=== PATIENT | male | born 1935 | race Caucasian/White ===

== ENCOUNTER 2017-12-18 10:50 | Emergency (ER) | payer MEDICARE, BC ==
[2017-12-18 12:14] VITALS: BP 155/82
--- NOTE | 2017-12-18 14:00 | EDM.PDOC ---
ED HPI GENERAL MEDICAL PROBLEM - General Chief Complaint: General Stated Complaint: FELL & HIT RT SIDE/HURT RIBS Time Seen by Provider: 12/18/17 11:50 Source of Information: Reports: Patient History Limitations: Reports: No Limitations - History of Present Illness INITIAL COMMENTS - FREE TEXT/NARRATIVE: pt fell on stump and hit his rt lower rib cage. He has pain when he moves a certain way and takes a deep breath. Onset: Other (pt fell 2 days ago. ) Duration: Hour(s): Location: Reports: Chest Associated Symptoms: Reports: Chest Pain RIGHT SIDE Pain Score (Numeric/FACES): 4 - Related Data Allergies Allergy/AdvReac Type Severity Reaction Status Date / Time amlodipine Allergy Dizziness Verified 12/18/17 12:08 ibuprofen Allergy Swelling Verified 12/18/17 12:08 indomethacin [From Indocin] Allergy Rash Verified 12/18/17 12:08 Penicillins Allergy Rash Verified 12/18/17 12:08 Home Meds: Home Meds Aspirin 81 mg PO DAILY 05/13/16 [History] Hydrocodone/Acetaminophen [Hydrocodon-Acetaminophen 5-500] 05/13/16 [History] Lisinopril/Hydrochlorothiazide [Lisinopril-Hctz 20-25 mg Tab] 2 tab PO 05/13/16 [History] Metoprolol Succinate [Toprol XL 100mg] 100 mg PO DAILY 05/13/16 [History] Simvastatin [Zocor] 40 mg PO 05/13/16 [History] Warfarin Sodium [Coumadin] 10 mg PO 05/13/16 [History] Past Medical History HEENT History: Reports: Cataract, Hard of Hearing Cardiovascular History: Reports: Arrhythmia, High Cholesterol, Hypertension Respiratory History: Reports: Asthma, COPD, SOB Musculoskeletal History: Reports: Arthritis Neurological History: Reports: Headaches, Chronic - Infectious Disease History Infectious Disease History: Reports: Measles, Mumps - Past Surgical History HEENT Surgical History: Reports: Other (See Below) Cardiovascular Surgical History: Reports: Coronary Artery Bypass, Coronary Artery Stent Social & Family History - Tobacco Use Smoking Status *Q: Never Smoker - Caffeine Use Caffeine Use: Reports: Coffee - Recreational Drug Use Recreational Drug Use: No ED ROS GENERAL - Review of Systems Review Of Systems: See Below Constitutional: Reports: No Symptoms HEENT: Reports: No Symptoms Respiratory: Reports: Other (pt has pain in his rt rib cage with movement and deep breathing since the fall. ) ED EXAM, GENERAL - Physical Exam Exam: See Below Free Text/Narrative:: pt fell and hit his rt ant rib cage. He hurts with deep breathing and movement. Exam Limited By: No Limitations General Appearance: Alert, Mild Distress Ears: Normal TMs Nose: Normal Inspection Throat/Mouth: Normal Inspection Head: Atraumatic Neck: Normal Inspection Respiratory/Chest: No Respiratory Distress Cardiovascular: Regular Rate, Rhythm GI/Abdominal: Soft, Non-Tender (Male) Exam: Deferred Rectal (Males) Exam: Deferred Back Exam: Normal Inspection Extremities: Normal Inspection Neurological: Alert, Oriented, Normal Cognition Course - Vital Signs Last Recorded V/S: Last Vital Signs Temp 36.2 C 12/18/17 12:12 Pulse 72 12/18/17 12:12 Resp 16 12/18/17 12:12 BP 155/82 H 12/18/17 12:12 Pulse Ox 98 12/18/17 12:12 - Orders/Labs/Meds Labs: Laboratory Tests 12/18/17 12/18/17 12/18/17 Range/Units 12:59 13:05 13:05 WBC 7.9 (4.5-11.0) K/uL RBC 4.11 L (4.30-5.90) M/uL Hgb 13.0 (12.0-15.0) g/dL Hct 38.9 L (40.0-54.0) % MCV 95 (80-98) fL MCH 32 H (27-31) pg MCHC 33 (32-36) % Plt Count 137 L (150-400) K/uL Neut % (Auto) 59 (36-66) % Lymph % (Auto) 29 (24-44) % [place] % (Auto) 11 H (2-6) % Eos % (Auto) 1 L (2-4) % Baso % (Auto) 0 (0-1) % PT 41.5 H (9.5-12.0) sec INR 3.67 H (0.80-1.20) Sodium 141 (140-148) mmol/L Potassium 3.7 (3.6-5.2) mmol/L Chloride 104 (100-108) mmol/L Carbon Dioxide 29 (21-32) mmol/L Anion Gap 8.4 (5.0-14.0) mmol/L BUN 32 H D (7-18) mg/dL Creatinine 1.1 (0.8-1.3) mg/dL Est Cr Clr Drug Dosing 51.82 mL/min Estimated GFR (MDRD) > 60 (>60) Glucose 102 (74-106) mg/dL Calcium 9.0 (8.5-10.1) mg/dL Total Bilirubin 0.8 (0.2-1.0) mg/dL AST 23 (15-37) U/L ALT 19 (12-78) U/L Alkaline Phosphatase 55 (46-116) U/L Total Protein 7.2 (6.4-8.2) g/dL Albumin 4.0 (3.4-5.0) g/dL Globulin 3.2 (2.3-3.5) g/dL Albumin/Globulin Ratio 1.3 (1.2-2.2) - Re-Assessments/Exams Free Text/Narrative Re-Assessment/Exam: 12/18/17 14:13 rib detail shows a possible undisplaced fracture in the 11 th rib lateral anterior. He has no evidence of a pneumothorax. Departure - Departure Time of Disposition: 13:58 Disposition: Home, Self-Care 01 Condition: Fair Clinical Impression: Rib fracture, COPD (chronic obstructive pulmonary disease) - Discharge Information Instructions: Chronic Obstructive Pulmonary Disease, [id number], Rib Fracture , [id number] Referrals: Jah King MD [Primary Care Provider] - Forms: ED Department Discharge Care Plan Goals: encourage deep breathing, use hydrocodone which he has for pain control, flexeril 5mg hs for muscle relaxation
--- NOTE | 2017-12-18 14:07 | CR ---
Ribs 2V w Chest Rt INDICATION: right chest pain COMPARISON: None FINDINGS: 3 views. Cardiomegaly. Sternotomy. Bilateral pleural thickening. Old fracture left fifth rib laterally. Age-indeterminate fracture posterolateral right 11th rib. No definite pleural effusio n or pneumothorax. No focal infiltrates.
== END 2017-12-18 14:14 | disposition home or self-care (01) ==
LOC: JP.ED 10:50
DX: S22.31XA Fracture of one rib, right side, initial encounter for closed fracture (principal); J44.9 Chronic obstructive pulmonary disease, unspecified; I10 Essential (primary) hypertension; Z88.0 Allergy status to penicillin; Z88.6 Allergy status to analgesic agent; Z88.8 Allergy status to other drugs, medicaments and biological substances; Z79.82 Long term (current) use of aspirin; Z79.899 Other long term (current) drug therapy; W18.00XA Striking against unspecified object with subsequent fall, initial encounter
CPT/HCPCS: 36415; 71101-26-RT; 71101-RT; 80053; 85025; 85610; 99284

== ENCOUNTER 2018-11-02 14:07 | Emergency (ER) | payer BC, MEDICARE ==
[2018-11-02] MEDS ORDERED: fentaNYL 100 MCG/2 ML SDV IVPUSH ONE (14:31)
[2018-11-02] MEDS ORDERED: Sodium Chloride 0.9% 80 ML IV ONE (14:50)
[2018-11-02] MEDS ORDERED: Sodium Chloride 0.9% 10 ML Syringe FLUSH ONE (14:50)
[2018-11-02] MEDS ORDERED: Iopamidol 612 MG/ML 100 ML Bottle IV SCH (15:00)
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
[2018-11-02] MEDS ORDERED: HYDROmorphone 0.5 MG/0.5 ML Syringe IVPUSH ONE ×2 (18:00→19:46)
[2018-11-02 18:11] VITALS: BP 122/78
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
== END 2018-11-02 19:57 ==
LOC: JP.ED 14:07
DX: S22.039A Unspecified fracture of third thoracic vertebra, initial encounter for closed fracture (principal); S22.049A Unspecified fracture of fourth thoracic vertebra, initial encounter for closed fracture; S32.019A Unspecified fracture of first lumbar vertebra, initial encounter for closed fracture; S32.029A Unspecified fracture of second lumbar vertebra, initial encounter for closed fracture; I10 Essential (primary) hypertension; J44.9 Chronic obstructive pulmonary disease, unspecified; Z88.0 Allergy status to penicillin; Z88.8 Allergy status to other drugs, medicaments and biological substances; Z79.82 Long term (current) use of aspirin; Z79.899 Other long term (current) drug therapy; V89.2XXA Person injured in unspecified motor-vehicle accident, traffic, initial encounter
CPT/HCPCS: 36415; 70450; 71260; 72125; 74177; 80053; 85027; 96374; 96375; 96376; 99285; J1170; J3010; J7030; Q9967